=== PATIENT | male | born 1980 | race African-American/Black ===

== ENCOUNTER 2017-04-06 22:49 | Emergency (ER) | payer MEDICAID ==
[~2017-04-06] VITALS: Ht 188 cm; Wt 105.0 kg
[2017-04-06] MEDS ORDERED: ACETAMINOPHEN 500 MG TABLET ONE (22:57)
[2017-04-06] MEDS ORDERED: SODIUM CHLORIDE 0.9% 1,000ML IVBOLUS ONE (23:30)
[2017-04-06] MEDS ORDERED: PLEASE ENTER ALLERGIES MC SCH ×2 (23:45)
[2017-04-06] MEDS ORDERED: OMNIPAQUE 350 MG/ML, 100ML BOTTLE ONE (23:56)
[2017-04-06] MEDS ORDERED: IBUPROFEN 200 MG TABLET ONE (23:56)
[2017-04-06] MEDS ORDERED: ONDANSETRON 2MG/ML, 2ML ONE (23:57)
[2017-04-07] LABS: BLOOD UREA NITROGEN 13 mg/dL (7-18)
[2017-04-07] MEDS ORDERED: IBUPROFEN 200 MG TABLET PO ONE
[2017-04-07] MEDS ORDERED: SODIUM CHLORIDE 0.9% 1,000ML IVBOLUS ONE
[2017-04-07] MEDS ORDERED: ONDANSETRON 2MG/ML, 2ML IVPush ONE
[2017-04-07 00:06] LABS: ASPARTATE AMINO TRANSFERASE 20 U/L (15-37)
[2017-04-07 00:07] LABS: IS PT STATUS REG ER OR PRE ER? YES
[2017-04-07] MEDS ORDERED: CEFTRIAXONE 1,000 MG in SODIUM CHLORIDE 0.9% 50 ML IV ONE (01:30)
[2017-04-07] MEDS ORDERED: AZITHROMYCIN 500 MG in SODIUM CHLORIDE 0.9% 250 ML IV ONE (01:30)
[2017-04-07] MEDS ORDERED: CEFTRIAXONE PMX 1GM/50ML 50 ML ONE (01:55)
[2017-04-07 03:39] VITALS: BP 104/69
== END 2017-04-07 04:03 | disposition home or self-care (01) ==
LOC: ED 23:59
DX: J15.9 Unspecified bacterial pneumonia (principal); F17.210 Nicotine dependence, cigarettes, uncomplicated; R10.9 Unspecified abdominal pain
CPT/HCPCS: 36415; 71010; 71275; 80053; 83605; 83690; 84145; 84484; 85025; 87040; 93005; 96361; 96365; 96366; 96375; 99285; J0456; J0696; J2405; J7030; J7050; Q9967